=== PATIENT | female | born 1995 | race Caucasian/White ===

== ENCOUNTER 2019-10-07 04:00 | Inpatient (IN) ==
[2019-10-07] MEDS ORDERED: Ondansetron 4 MG/2 ML VIAL IVP PRN (06:19)
[2019-10-07] MEDS ORDERED: Naloxone 0.4 MG/ML INJ IVP PRN (06:19)
[2019-10-07] MEDS ORDERED: Famotidine 20 MG/2 ML VIAL IVP PRN (06:19)
[2019-10-07] MEDS ORDERED: Lidocaine 1% 20 ML MDV INFILT PRN (06:19)
[2019-10-07] MEDS ORDERED: Metoclopramide 10 MG/2 ML VIAL IVP PRN (06:19)
[2019-10-07] MEDS ORDERED: miSOPROStol 25 MCG TABLET VG PRN (06:19)
[2019-10-07] MEDS ORDERED: Ringers Solution, Lactated 1,000 ML IVC SCH (06:30)
[2019-10-07 07:10] LABS: Basophils # 0.1 K/mcL (0.0-0.2); Basophils % 0.3 %; Eosinophils # 0.2 K/mcL (0.0-0.6); Eosinophils % 0.9 %; Hematocrit 35.7 % (35.3-44.9); Hemoglobin 12.8 g/dL (11.5-15.4); Lymphocytes % 18.3 %; Mean Corpuscular HGB Conc 35.9 g/dL (31.6-35.5); Mean Corpuscular Hemoglobin 31.1 pg (28.0-33.3); Mean Corpuscular Volume 86.9 fL (83.0-100.0); Mean Platelet Volume 11.2 fL (9.4-12.4); Neutrophils # 12.1 K/mcL (1.6-8.9); Platelet Count 232 K/mcL (140-400); Red Blood Count 4.11 M/mcL (3.82-4.97); Red Cell Distribution Width 12.7 % (11.5-14.5); Segmented Neutrophils % 73.5 %; White Blood Count 16.5 K/mcL (4.3-11.1)
[2019-10-07 07:22] LABS: Amphetamine Screen,Urine Negative ng/mL (Cutoff=1000); Barbiturate Screen,Urine Negative ng/mL (Cutoff=200)
[2019-10-07 07:23] LABS: Benzodiazepines Screen,Urine Negative ng/mL (Cutoff=300); Cannabinoid Screen,Urine Negative ng/mL (Cutoff = 50); Cocaine Screen,Urine Negative ng/mL (Cutoff= 300); Opiate Screen,Urine Negative ng/mL (Cutoff=300); Phencyclidine Screen,Urine Negative ng/mL (Cutoff=25)
[2019-10-07] MEDS ORDERED: Nicotine 7 MG PATCH.TD24 TD SCH (14:30)
[2019-10-07] MEDS ORDERED: Epidural Premix (fent/bupiv) 110 ML EP SCH (15:15)
[2019-10-07] MEDS ORDERED: Oxytocin 20 units/ LR 1000 mL 20 UNIT/1,000 ML BAG IVC SCH ×2 (15:45→21:19)
[2019-10-07] MEDS ORDERED: Ropivacaine/PF 0.2% 20 ML VIAL ONE (16:57)
[2019-10-07] MEDS ORDERED: Measles/Mumps/Rubella Vacc 0.5 ML VIAL SQ PRN (21:19)
[2019-10-07] MEDS ORDERED: Rho Immune Globulin 1,500 UNIT SYRINGE IM PRN (21:19)
[2019-10-07] MEDS ORDERED: Ibuprofen 600 MG TABLET PO PRN (21:19)
[2019-10-07] MEDS: Acetaminophen 325 MG TABLET PO PRN (21:39)
[2019-10-08 08:06] VITALS: BP 104/65
[2019-10-08 08:32] LABS: Basophils % 0.2 %; Eosinophils # 0.1 K/mcL (0.0-0.6); Eosinophils % 0.5 %; Hematocrit 33.1 % (35.3-44.9); Immature Granulocytes % 0.5 % (0-4); Lymphocytes # 2.2 K/mcL (0.6-4.6); Lymphocytes % 12.6 %; Mean Corpuscular HGB Conc 33.8 g/dL (31.6-35.5); Mean Corpuscular Volume 88.7 fL (83.0-100.0); Mean Platelet Volume 10.6 fL (9.4-12.4); Neutrophils # 13.8 K/mcL (1.6-8.9); Platelet Count 195 K/mcL (140-400); Red Blood Count 3.73 M/mcL (3.82-4.97); Red Cell Distribution Width 12.5 % (11.5-14.5); Segmented Neutrophils % 80.2 %; White Blood Count 17.1 K/mcL (4.3-11.1)
[2019-10-08 08:51] LABS: Hemoglobin 11.2 g/dL (11.5-15.4)
[2019-10-08] MEDS ORDERED: PRENATAL FORMULA PO SCH (09:00)
[2019-10-08] MEDS ORDERED: Prenatal Vit/FA 1 EACH TABLET PO SCH (09:00)
[2019-10-08] MEDS ORDERED: *HR* Buprenorphine HCl 8 MG TAB.SUBL SL SCH (09:00)
[2019-10-08] MEDS: Acetaminophen 325 MG TABLET PO PRN (09:04)
== END 2019-10-08 12:26 | disposition home or self-care (01) | DRG 560 ==
LOC: 1NENULAB 06:18 → 1NENUOBS 21:26
PROVIDERS: ADMIT Student in an Organized Health Care Education/Training Program; ATTEND Student in an Organized Health Care Education/Training Program